=== PATIENT | female | born 1960 | race Two or more races ===

== ENCOUNTER 2022-05-15 19:48 | Emergency (ER) | payer OTHER ==
[~2022-05-15] VITALS: Ht 162.6 cm; Wt 79.4 kg
[2022-05-15] MEDS ORDERED: BYSTOLIC5 MG (20:24)
[2022-05-15] MEDS ORDERED: VYTORIN 10-401 EACH (20:25)
[2022-05-15] MEDS ORDERED: SINGULAIR 10MG10 MG PO (20:26)
[2022-05-15] MEDS ORDERED: IPRAT-ALBUT 0.5-3 ML IH (20:27)
[2022-05-15] MEDS ORDERED: BENZONATATE100 MG PO (20:27)
[2022-05-15] MEDS ORDERED: PROAIR RESPICL90 MCG (20:28)
[2022-05-15] MEDS ORDERED: CLARITIN5 MG/5 ML (20:28)
== END 2022-05-15 21:12 | disposition home or self-care (01) ==
LOC: ER 19:48
DX: J40 Bronchitis, not specified as acute or chronic (principal)